=== PATIENT | female | born 1975 | race Asian ===

== ENCOUNTER 2020-11-16 03:24 | Outpatient (CLI) | payer MEDICAID, SELFPAY ==
[2020-11-16 12:04] LABS: Anion Gap 8.2 mmol/L (3-11); BUN 15 mg/dL (7-18); CO2 26.8 mmol/L (21.0-32.0); CREATININE 0.7 mg/dL (0.55-1.02); Calcium 8.6 mg/dL (8.5-10.1); Calculated LDL 104 mg/dL (<100); Chloride 105 mmol/L (98-107); Cholesterol 182 mg/dL (<200); Glucose 93 mg/dL (74-106); HDL Cholesterol 69 mg/dL (40-60); Potassium 4.5 mmol/L (3.5-5.1); Sodium 140 mmol/L (136-145); TSH (W/Ref FT4) 0.76 uIU/mL (0.36-3.74); Triglyceride 49 mg/dL (<150)
[2020-11-17 10:39] LABS: Hepatitis C Ab w Rflx HCV PCR Negative (Negative)
[2020-11-17 10:50] LABS: HIV-1/2 Ag & Ab Screen Negative (Negative)
== END 2020-11-16 03:25 | disposition home or self-care (01) ==
LOC: LBO 03:24
PROVIDERS: PCP Nurse Practitioner Family; Visit Provider Nurse Practitioner Family
DX: G47.00 Insomnia, unspecified (principal); R23.2 Flushing; R68.89 Other general symptoms and signs; Z13.220 Encounter for screening for lipoid disorders; Z11.4 Encounter for screening for human immunodeficiency virus [HIV]; Z11.59 Encounter for screening for other viral diseases; Z13.1 Encounter for screening for diabetes mellitus
CPT/HCPCS: 36415; 80048; 80061; 86803; 87389; 84443

== ENCOUNTER 2020-11-23 10:16 | Outpatient (REF) | payer MEDICAID, SELFPAY ==
--- NOTE | 2020-11-23 09:00 | PAPFT_PTH ---
PATIENT: Reg Garcia LOC: [facility] U#:[id number] AGE/SX: 45/F ROOM: RE11/23/[address]: Steph Rodriguez APRN : 1975 BED: DIS: 11/23/2020 SPEC #: [id number] RECD: 11/23/20 17:57 STATUS: AMBROCIO REPadmini #: [id number] AMBER: 11/23/20 09:[address]: Steph Rodriguez DEPT: [facility] Cytology RECD BY: Angelia Cardona Tissues: 1 - CX/ENDOCX FOR PAP SMEARS Procedures: PAP THIN PREP/UVM Screening HPV DNA PROBE Comments: [id number]
== END 2020-11-23 10:17 | disposition home or self-care (01) ==
LOC: LBN 10:16
PROVIDERS: PCP Nurse Practitioner Family; Visit Provider Nurse Practitioner Family
DX: Z12.4 Encounter for screening for malignant neoplasm of cervix (principal); Z11.51 Encounter for screening for human papillomavirus (HPV)
CPT/HCPCS: 88142; 87624

== ENCOUNTER 2021-05-21 15:50 | Outpatient (REF) | payer MEDICAID, SELFPAY ==
[2021-05-23 15:03] LABS: COVID-19 RT-PCR UVMMC Result Negative (Negative)
== END 2021-05-21 15:51 | disposition home or self-care (01) ==
LOC: LBN 15:50
PROVIDERS: PCP Nurse Practitioner Family; Visit Provider Nurse Practitioner Family
DX: Z20.822 Contact with and (suspected) exposure to COVID-19 (principal)
CPT/HCPCS: U0003

== ENCOUNTER 2022-08-18 11:13 | Day surgery (SDC) | payer MEDICAID, SELFPAY ==
--- NOTE | 2022-08-18 07:16 | W.PM.DSUDISC ---
Date of service: 08/18/22 Time of Service: 13:37 Discharge Plan Disposition Patient Disposition: Home Condition: Good Discharge Details Reason For Visit: Screening colonoscopy Attending Provider: Amish Tipton Primary Care Provider: Steph Rodriguez Home Meds and New Rx's Prescriptions: Continued trazodone 50 mg tablet 50 mg PO HS PRN (Reason: insomnia) Qty: 90 3RF Discontinued bisacodyl [Dulcolax (bisacodyl)] 5 mg tablet,delayed release (DR/EC) 5 mg PO ONCE Qty: 4 0RF Rx Instructions: Take according to provider's instructions for colonoscopy prep. polyethylene glycol 3350 17 gram/dose powder 17 g PO ONCE Qty: 238 0RF Rx Instructions: To be taken as directed by prescriber's office for colonoscopy prep. Discharge Instructions Additional Instructions: Ciera, I am sorry to tell you that I was not able to complete your colonoscopy today, because of difficulty advancing the scope beyond 1 area of your large intestine. As we talked about in the recovery unit, my recommendation is to follow-up with a barium enema. Alternatively, you could perform a Cologuard test as a screen for colon or rectal cancers. I have taken the liberty of placing the order for the barium enema. If you would like to discuss these options in more detail, please notify my office, we can arrange for a visit to go over any questions that you have. 1. If tolerated, consume a soft, low fiber diet for 1-2 days. 2. Do not drive, drink alcohol, operate machinery, make critical decisions, or do activities that require coordination or balance for 24 hours. 3. Because air was put into your colon during the procedure, expelling air from your rectum (passing gas or farting) is normal. 4. You may not have a bowel movement for 1-3 days because of the colonoscopy prep. This is normal. 5. Go directly to the emergency room if you notice any of the following: Develop chills (warm to touch), or if you have a thermometer and your temperature is above 101 Difficulty breathing or difficultly swallowing Persistent vomiting Severe abdominal pain, other than gas cramps Severe chest pain Black, tarry stools Any bleeding ? exceeding one tablespoon 6. Call your physician if the site where your intravenous was started becomes red, swollen, painful, and warm to touch. 7. Your physician has reviewed your pre-procedure medications. Please continue to take those medications as previously ordered. You will be given specific information/education regarding any changes to your medications before leaving. Activity:: Activity as Tolerated Diet:: As Tolerated Discharge Orders Discharge Orders: Discharge Order (Routine); Ordered 08/18/22 Ordered By: Amish Tipton Discharge Data Discharge Date/Time-TO BE ENTERED AT DEPARTURE: 08/18/22 14:35 DS: Diagnosis Discharge Diagnosis (1) Encounter for screening for malignant neoplasm of colon: Status: Acute Asessment and Plan: Will need follow-up with a barium enema, Cologuard, or reference to another endoscopist for a second opinion and trial of colonoscopy.
--- NOTE | 2022-08-18 07:17 | W.COLOREPORT ---
Date of service: 08/18/22 Time of Service: 13:32 Colonoscopy Report Date of procedure: 08/18/22 Pre-op diagnosis general: Screening colonoscopy Post-op diagnosis procedure note: other (Incomplete colonoscopy) Procedure: Incomplete colonoscopy Surgeon: Amish Tipton Anesthesia Type: General:No Airway Estimated blood loss (mL): 0 Pathology: none sent Complications: None Disposition: same day Indications: Ciera is a 46-year-old woman here for her first screening colonoscopy. Prep: Miralax/Dulcolax Procedure Start Time: 13:03 Procedure End Time: 13:22 Findings: A tortuous turn near the splenic flexure Procedure Description: After the induction of monitored anesthetic care, and with the patient in left lateral decubitus position, I began by performing an external anorectal exam.? Perineum and skin were normal, as was the anal verge.? There were some fibrosed external skin tags consistent with old hemorrhoids.? Next, I performed a digital rectal exam.? I did not appreciate any abnormal findings.? Next, I advanced the colonoscope through the rectum into the distal colon. Around 45 to 50 cm from the anal verge, I encountered a sharp turn in the colon. I attempted to navigate this, but I was unable to successfully pass the colonoscope beyond it. After several attempts with irrigation insufflation, suction retraction, multiple angle approaches, and repositioning the patient, I was still unable to pass the scope safely. There was some inflammation and irritation of the colonic mucosa because of the scope manipulation. Therefore, in an effort to maximize her safety, and reduce the chance of iatrogenic injury, I felt the safest thing to do is terminate the procedure at that point
[2022-08-18 11:52] VITALS: BP 135/90; PULSE 101; RESP 16; TEMP 36.3; O2SAT 100
[2022-08-18] MEDS: Lactated Ringers 1,000 ML 80 ML IV (12:10)
--- NOTE | 2022-08-18 12:19 | W.ANESPRE ---
General Info Date of Service Date Performed: 08/18/22 Height: 5 ft 1 in Weight: 51.6 kg Body Mass Index (BMI): 21.4 Surgical Procedure: Operation Date: 08/18/22 13:05 Proposed Procedure Side Surgeon lynn Tipton MD Meds Allergies and Home Medications Allergies Allergy/AdvReac Type Severity Reaction Status Date / Time No Known Drug Allergies Allergy Verified 11/24/21 08:29 Home Medication Medication Instructions Recorded trazodone 50 mg tablet 50 mg PO HS PRN insomnia #90 11/24/21 tab-caps bisacodyl 5 mg tablet,delayed 5 mg PO ONCE #4 tabs 07/21/22 release (Dulcolax (bisacodyl)) polyethylene glycol 3350 17 17 g PO ONCE #238 grams 07/21/22 gram/dose oral powder Current Visit Medications: Current Medications Generic Name Dose Route Start Last Admin Trade Name Freq PRN Reason Stop Dose Admin Hyoscyamine Sulfate 0.125 mg 08/18/22 07:18 Hyoscyamine 0.125 Mg Sl/Oral/Chew SL DIRECTED PRN Ringer's Solution 1,000 mls @ 80 mls/hr 08/18/22 06:00 08/18/22 12:10 IV 09/16/22 23:59 80 mls/hr INFUSION ESME Administration IV Miscellaneous Supplies 1 each 08/18/22 06:00 Iv Access IV 09/16/22 23:59 DIRECTED ESME Ondansetron HCl 4 mg 08/18/22 07:18 Ondansetron 4 Mg/2 Ml Vial IVP Q4H PRN PRN Nausea / Vomiting Sodium Chloride 0 ml 08/18/22 06:00 Normal Saline Flush 10 Ml Syr IV 09/16/22 23:59 PRN PRN Sodium Chloride 0 ml 08/18/22 06:00 Normal Saline 10 Ml Vial IJ 09/16/22 23:59 DIRECTED PRN Sterile Water 0 ml 08/18/22 06:00 Water,Injection,Sterile 10 Ml Vial IJ 09/16/22 23:59 DIRECTED PRN PFSH Active Problems Active Problems: Problem Status Onset Code Encounter for screening for malignant neoplasm of colon Z12.11 Insomnia G47.00 Surgical History Surgical History section (07/10/05) Tobacco Smoking/Tobacco Use Status: Never Passive smoking exposure: No Alcohol Alcohol Intake: current Alcohol intake frequency: 0-2 drinks per day Substance Use Substance use: Never Substance use type: does not use Vital Signs and Lab Results Vital Signs Most Recent Vital Signs in EMR: Most Recent Vital Signs Temp Pulse Resp BP Pulse Ox 36.3 C L 101 H 16 135/90 100 08/18/22 11:52 08/18/22 11:52 08/18/22 11:52 08/18/22 11:52 08/18/22 11:52 Lab Results Blood Type / Crossmatch: No Data to Display Complete Blood Count: No Data to Display Complete Metabolic Panel: No Data to Display Liver Function Panel: No Data to Display Coagulation Panel: No Data to Display Cardiac Panel: No Data to Display Arterial Blood Gas: No Data to Display Venous Blood Gas: No Data to Display Pancreas Panel: No Data to Display Thyroid Panel: No Data to Display Infectious Disease: No Data to Display Blood Cultures: No Data to Display Toxicology Panel: No Data to Display Panel: No Data to Display Anesthesia Assessment and Plan Anesthesia History Personal History: No History of Anesthesia Complications Family History: No Family History of Anesthesia Complications Exercise Tolerance Exercise Tolerance: Metabolic Equivalents>4 Pertinent Negatives Pertinent Negatives: No Symptoms of GERD, No Major Cardiovascular Symptoms or Complaints and No Major Pulmonary Symptoms or Complaints Cardiac & Pulmonary Exam Cardiac Exam: Normal S1/S2 Heart Sounds Pulmonary Exam: Clear Bilateral Breath Sounds Implantable Cardiac Device Does patient have a Pacemaker or an ICD?: No Airway Exam Known Difficult Airway: No Mallampati Class: 1 Mouth Opening: Normal (> 3cm) Thyromental Distance: Greater than 3 cm Neck Range of Motion: Full ROM Neck Circumference: Normal Teeth Condition: Normal Dentition ASA Classification ASA Score: ASA 2 Emergency Case?: No NPO Status NPO Status: NPO Clears >2 hours, Solids >8 hours Status Status: Negative HCG Anesthesia Plan Resuscitation Status: Full Code Anesthesia Technique: General Anesthesia Airway Planned: Natural Airway Monitors Used: Standard Monitors
[2022-08-18 12:21] VITALS: BMI 21.4
[2022-08-18 13:34] VITALS: PULSE 71; RESP 16; TEMP 36.2; O2SAT 100
[2022-08-18 14:00] VITALS: BP 113/69; PULSE 68; RESP 16; TEMP 36.4; O2SAT 100
--- NOTE | 2022-08-18 14:25 | W.ANESPOSTOP ---
Postoperative Evaluation Date, Time and Location Date Performed: 08/18/22 Time Performed: 13:40 Patient Location: Day Surgery Unit Vital Signs Most Recent Imported Vital Signs: Most Recent Vital Signs Temp Pulse Resp BP Pulse Ox 36.4 C L 68 16 113/69 100 08/18/22 14:00 08/18/22 14:00 08/18/22 14:00 08/18/22 14:00 08/18/22 14:00 Pain Score Most Recent Pain Score: Most Recent Pain Score Pain Level 0 08/18/22 14:00 Assessment Mental Status: Awake (Alert & Oriented to Patient Baseline) Airway and Respiratory Function: Patent airway with normal (patient baseline) respiratory exam Cardiovascular Function: Hemodynamically Stable Hydration Status: Adequately Hydrated Nausea & Vomiting: No Nausea or Vomiting Pain: Pt. Denies Any Pain Peripheral Nerve Block: Patient did not receive a nerve block
== END 2022-08-18 14:35 | disposition home or self-care (01) ==
LOC: SUR 11:15
PROVIDERS: PCP Nurse Practitioner Family; Visit Provider Surgery
PROC: 0DJD8ZZ Inspection of Lower Intestinal Tract, Via Natural or Artificial Opening Endoscopic (ICD-10-PCS; CPT 45378; principal; 2022-08-18 13:00)
DX: Z12.11 Encounter for screening for malignant neoplasm of colon (principal); K63.89 Other specified diseases of intestine
CPT/HCPCS: 45330; 81025

== ENCOUNTER 2023-12-11 15:26 | Emergency (ER) | payer MEDICAID, SELFPAY ==
[2023-12-11 15:28] VITALS: BP 126/70; PULSE 73; RESP 20; TEMP 37.1; O2SAT 99
[2023-12-11 15:38] VITALS: BP 126/70; PULSE 73; RESP 20; TEMP 37.1; O2SAT 99
[2023-12-11] MEDS: Ketorolac 15 MG/ML VIAL IM (16:30)
[2023-12-11] MEDS: Loratidine 10 MG TAB PO (16:30)
[2023-12-11] MEDS: Prochlorperazine 10 MG/2 ML VIAL 5 MG IM (16:30)
--- NOTE | 2023-12-11 16:39 | DI.RAD_ITS ---
Exam(s) XR CHEST 2V PA LATERAL EXAM: XR CHEST 2V PA LATERAL CLINICAL HISTORY: cough and shortness of breath. TECHNIQUE: 2D digital imaging was performed. COMPARISON: No exams were available for comparison FINDINGS: 2 views: Heart size is normal. The mediastinum is not widened. Lungs are clear. No infiltrates nor pleural effusions. IMPRESSION: No acute pulmonary findings. DATA REPOSITORY: RADIATION DOSE DELIVERED:
--- NOTE | 2023-12-11 17:06 | ED.GENADUL_ITS ---
Discharge Plan Disposition Patient Disposition: Home Condition: Stable Discharge Details Clinical Impression: Headache, Acute sore throat Primary Care Provider: Steph Rodriguez ED Provider: Angelia Mujica Home Meds and New Rx's Prescriptions: New loratadine [Claritin] 10 mg tablet 10 mg PO DAILY PRNQty: 14 0RF prochlorperazine maleate [Compazine] 10 mg tablet 10 mg PO Q8H PRNQty: 10 0RF Continued trazodone 50 mg tablet 50 mg PO HS PRN (Reason: insomnia) Qty: 90 3RF permethrin 5 % cream 1 applic topical Q14D Qty: 60 0RF Rx Instructions: Apply to all areas of the body from the neck to soles of feet (30 g for average adult); leave on for 8 to 14 hours before removing by washing (shower or bath). For older adults, also apply on the hairline, neck, scalp, confucianism, and forehead. One application is generally curative; may repeat if living mites/rash are observed 14 days after first treatment. Discharge Instructions Instructions: General Headache (ED) Additional Instructions: Take ibuprofen 600 mg every 8 hours as needed for pain You may take Tylenol 650 mg every 6 hours as needed for additional discomfort Take Claritin daily for the next week or so and see if your symptoms are improving this is an allergy medication I also recommend taking the Compazine as needed for headache Please be reevaluated in 1 week should you have persistent symptoms, should your headache worsen or you develop any new symptoms please return to the emergency department for reassessment I will call if the results of your flu, COVID, RSV are positive if they are negative I will not call this evening Referrals: Steph Rodriguez NP [Primary Care Provider] - 2 days Discharge Data Discharge Date/Time-TO BE ENTERED AT DEPARTURE: 12/11/23 17:15 HPI General Date/Time Provider Initiated Documentation: 12/11/23 15:33 . HPI Narrative: This 48-year-old female presents with headache and sore throat for the past week. States symptoms are intermittent. Denies any known sick contacts. States otherwise healthy. Denies any fever or chills. Denies any neck pain. Denies history of regular headaches in the past. Denies any tick bites. Denies any rashes or lesions. Denies globus sensation. Related Data Home Medications Medication Instructions Recorded Confirmed permethrin 5 % topical cream 1 applic topical Q14D scabies 2 11/16/22 11/30/22 doses #60 grams trazodone 50 mg tablet 50 mg PO HS PRN insomnia #90 11/30/22 11/30/22 tab-caps loratadine 10 mg tablet (Claritin) 10 mg PO DAILY PRN #14 tabs 12/11/23 prochlorperazine maleate 10 mg 10 mg PO Q8H PRN #10 tabs 12/11/23 tablet (Compazine) Previous Rx's Medication Instructions Recorded permethrin 5 % topical cream 1 applic topical Q14D scabies 2 11/16/22 doses #60 grams trazodone 50 mg tablet 50 mg PO HS PRN insomnia #90 11/30/22 tab-caps loratadine 10 mg tablet (Claritin) 10 mg PO DAILY PRN #14 tabs 12/11/23 prochlorperazine maleate 10 mg 10 mg PO Q8H PRN #10 tabs 12/11/23 tablet (Compazine) Allergies Allergy/AdvReac Type Severity Reaction Status Date / Time No Known Allergies Allergy Unverified 12/11/23 15:33 General Stated Complaint: Headache PAUL: 3 Exam Narrative Exam Narrative: Alert and oriented 48-year-old female, uvula midline, oropharynx patent, no erythema, maintaining secretions, no trismus, pupils equal round reactive to light and accommodation lungs clear to auscultation bilaterally, cardiac rate rhythm regular, no abdominal tenderness, no meningismus, nonfocal neurological exam, no rashes or lesions, no submandibular lymphadenopathy Course Vital Signs Vital signs: Vital Signs Temperature 37.1 C 12/11/23 15:28 Pulse 73 12/11/23 15:28 Respiratory Rate 20 12/11/23 15:28 Blood Pressure 126/70 12/11/23 15:28 Pulse Oximetry 99 12/11/23 15:28 Temperature 37.1 C 12/11/23 15:38 Temperature Source Temporal Artery Scan 12/11/23 15:38 Pulse 73 12/11/23 15:38 Respiratory Rate 20 12/11/23 15:38 Respiratory Effort Normal, Non-Labored 12/11/23 15:33 Blood Pressure 126/70 12/11/23 15:38 Blood Pressure Position Sitting 12/11/23 15:38 Pulse Oximetry 99 12/11/23 15:38 Oxygen Delivery Method Room Air 12/11/23 15:38 Oxygen Flow Rate 0 12/11/23 15:38 Medical Decision Making 48-year-old female presenting with headache, no acute distress, given IM Toradol and IM Compazine, headache has resolved, no acute distress, no meningismus, negative Fluvid, negative chest x-ray per radiology interpretation and my review. Vitals are stable, oxygenation 99%, afebrile and complete resolution of symptoms after supportive therapy and Compazine. At this time I think patient stable for discharge home, I suspect she probably has a viral etiology of symptoms versus allergies. Should headache return or worsen she is encouraged to return for reassessment. Recommendation for 48-hour follow-up with primary care physician discharged home in stable condition with stable vitals. Of note, patient's son was the double spindle shaper operator for this patient, I confirmed with patient that she would prefer her son over language line double spindle shaper operator and she refused language line interpretation during my encounter. Patient is fully alert, oriented, and of decisional capacity Quality:SDOH Health Related Social Needs: No Data to Display PFSH All Active Problems (Updated 12/11/23 @ 17:07 by BLANCA Rankin) Acute sore throat (Acute) Headache (Acute) Insomnia (Acute) Surgical History (Updated 11/30/22 @ 08:47 by Steph Rodriguez NP) Status post section (~07/10/05) Family History Mother Essential hypertension Social History (Updated 11/30/22 @ 08:32 by Nita Houston RN) Smoking/Tobacco Use Status: Never Smoking risk assessment performed?: Yes Alcohol Intake: current Alcohol Intake frequency: 0-2 drinks per day Counseling given: No Drug use: Never Substance use type: does not use Adopted: No Caregiver/Support person: No Foster care: No Household members: family Housing: house Number of Children: 2 Communication Needs: Language Barriers Education Level: middle school Do you need help understanding health information?: Never current occupation: works in a restaurant Pets and animals: No Sexually active: No Do you think of yourself as: straight/heterosexual Current gender identity: female What is your relationship status?: How often do you talk on the phone with friends or family?: three or more times per week How often do you get together with friends or relatives?: decline to answer How often do you attend mandaeism or spiritism services?: decline to answer Do you belong to any clubs or organized social groups?: no Panel score (0-1 are the most socially isolated patients): 2 What type of physical activity do you participate in: bicycling Duration: < 15 minutes/day Frequency: daily Special padma needs: No Seatbelt use: always Helmet use: No Drive intox or ride w/intox driver education instructor: No Do you feel safe at home: Yes Do you feel safe in your relationship?: Yes Victim of physical abuse: No Victim of emotional abuse: No Victim of sexual abuse: No Would you like helpful sources: No
[2023-12-11 17:07] LABS: COVID-19 PCR Negative (Negative); Influenza A PCR Negative (Negative); Influenza B PCR Negative (Negative); RSV PCR Negative (Negative)
[2023-12-11 17:08] LABS: Source Nasopharynx
== END 2023-12-11 17:15 | disposition home or self-care (01) ==
LOC: ER 17:52
PROVIDERS: Emergency Provider Physician Assistant; PCP Nurse Practitioner Family
DX: R51.9 Headache, unspecified (principal); J02.9 Acute pharyngitis, unspecified
CPT/HCPCS: 36415; 87637; 96372; 99284; 71046; J0780; J1885

== ENCOUNTER 2024-01-01 03:03 | Outpatient (CLI) | payer MEDICAID, SELFPAY ==
[2024-01-01 09:30] LABS: Absolute Basophil Count 0.03 10^3/uL (0.0-0.2); Absolute Eosinophil Count 0.08 10^3/uL (0.0-0.7); Absolute Lymphocyte Count 1.51 10^3/uL (1.2-3.4); Absolute Monocyte Count 0.34 10^3/uL (0.1-0.8); Absolute Neutrophil Count 2.76 10^3/uL (1.2-6.7); Basophils % 0.6 %; Eosinophils % 1.7 %; HCT 32.3 % (36.0-46.0); HGB 9.7 g/dL (11.2-15.7); MCH 17.2 pg (27.0-33.0); MCV 57 fL (80-95); Monocytes % 7.2 %; Neutrophils % 58.5 %; RBC 5.63 10^6/uL (3.93-5.22); RDW 20.7 % (11.7-14.6); RDW-SD 38.1 fL; WBC 4.72 10^3/uL (4.4-10.8)
[2024-01-01 09:46] LABS: ALT 20 U/L (14-59); AST 20 U/L (15-37); Albumin 3.7 g/dL (3.4-5.0); Alkaline Phosphatase 44 U/L (46-116); Anion Gap 8.1 mmol/L (3-11); BUN 10 mg/dL (7-18); Bilirubin, Total 0.25 mg/dL (0.2-1.0); CO2 27.9 mmol/L (21.0-32.0); CREATININE 0.7 mg/dL (0.55-1.02); Calcium 8.7 mg/dL (8.5-10.1); Calculated LDL 108 mg/dL (<100); Chloride 106 mmol/L (98-107); Cholesterol 183 mg/dL (<200); Estimated GFR 105.95 (mL/min/1.73m2); Glucose 102 mg/dL (74-106); HDL Cholesterol 69 mg/dL (40-60); Potassium 4.2 mmol/L (3.5-5.1); Sodium 142 mmol/L (136-145); Total Protein 7.8 g/dL (6.4-8.2); Triglyceride 31 mg/dL (<150)
[2024-01-01 09:48] LABS: Platelet Count 313 10^3/uL (130-400)
[2024-01-01 09:49] LABS: Anisocytosis 2+; Diff Comment RBC Morph Reviewed; Hypochromasia 3+; Microcytosis 2+
== END 2024-01-01 03:04 | disposition home or self-care (01) ==
LOC: LBO 03:04
PROVIDERS: PCP Nurse Practitioner Family; Referring Provider Nurse Practitioner; Visit Provider Nurse Practitioner
DX: Z13.220 Encounter for screening for lipoid disorders (principal); Z91.09 Other allergy status, other than to drugs and biological substances; G47.00 Insomnia, unspecified
CPT/HCPCS: 36415; 80053; 80061; 85025

== ENCOUNTER 2024-03-04 03:08 | Outpatient (CLI) | payer MEDICAID, SELFPAY ==
[2024-03-04 11:43] LABS: Abs Immature Grans 0.01 10^3/uL (0.0-0.06); Absolute Basophil Count 0.03 10^3/uL (0.0-0.2); Absolute Eosinophil Count 0.03 10^3/uL (0.0-0.7); Absolute Lymphocyte Count 1.74 10^3/uL (1.2-3.4); Absolute Monocyte Count 0.33 10^3/uL (0.1-0.8); Absolute Neutrophil Count 2.11 10^3/uL (1.2-6.7); Basophils % 0.7 %; Eosinophils % 0.7 %; HCT 30.8 % (36.0-46.0); Immature Grans % 0.2 %; Lymphocytes % 40.9 %; MCH 16.7 pg (27.0-33.0); MCHC 29.2 % (32.0-36.0); MCV 57 fL (80-95); Monocytes % 7.8 %; Neutrophils % 49.7 %; Platelet Count 338 10^3/uL (130-400); RDW 19.9 % (11.7-14.6); RDW-SD 35.9 fL; WBC 4.25 10^3/uL (4.4-10.8)
[2024-03-04 11:58] LABS: Diff Comment RBC Morph Reviewed; Microcytosis 2+
[2024-03-04 11:59] LABS: Poikilocytes 2+
[2024-03-04 12:40] LABS: Ferritin 8 ng/mL (8-252); TSH (W/Ref FT4) 0.92 uIU/mL (0.36-3.74); Vitamin B12 393 pg/mL (193-986)
[2024-03-04 12:52] LABS: Total Iron Binding Capacity 358 ug/dL (250-450)
== END 2024-03-04 03:09 | disposition home or self-care (01) ==
LOC: LBO 03:08
PROVIDERS: PCP Nurse Practitioner Family; Referring Provider Nurse Practitioner; Visit Provider Nurse Practitioner
DX: D64.9 Anemia, unspecified (principal)
CPT/HCPCS: 36415; 82607; 82728; 83550; 84443; 85025

== ENCOUNTER 2024-03-08 09:34 | Outpatient (REF) | payer MEDICAID, SELFPAY | END 2024-03-08 09:35 | disposition home or self-care (01) | LOC: LBN 09:34 | PROVIDERS: PCP Nurse Practitioner Family; Visit Provider Nurse Practitioner Family | DX: R30.9 Painful micturition, unspecified (principal); R35.0 Frequency of micturition | CPT/HCPCS: 87480; 87510; 87660 ==

== ENCOUNTER 2024-05-13 03:10 | Outpatient (CLI) | payer MEDICAID, SELFPAY ==
[2024-05-13 09:53] LABS: Abs Immature Grans 0.02 10^3/uL (0.0-0.06); Absolute Basophil Count 0.03 10^3/uL (0.0-0.2); Absolute Eosinophil Count 0.06 10^3/uL (0.0-0.7); Absolute Monocyte Count 0.35 10^3/uL (0.1-0.8); Absolute Neutrophil Count 2.43 10^3/uL (1.2-6.7); Basophils % 0.7 %; Eosinophils % 1.4 %; HCT 32.3 % (36.0-46.0); HGB 9.4 g/dL (11.2-15.7); Immature Grans % 0.5 %; MCHC 29.1 % (32.0-36.0); MCV 55 fL (80-95); Monocytes % 8.4 %; Platelet Count 328 10^3/uL (130-400); RBC 5.88 10^6/uL (3.93-5.22); RDW 21.5 % (11.7-14.6); RDW-SD 37.5 fL; WBC 4.19 10^3/uL (4.4-10.8)
[2024-05-13 10:19] LABS: Anisocytosis 1+; Diff Comment RBC Morph Reviewed; Hypochromasia 1+
[2024-05-13 10:20] LABS: Target Cells 2+
[2024-05-13 10:21] LABS: Poikilocytes 2+
[2024-05-13 10:47] LABS: Iron 24 ug/dL (50-170)
[2024-05-13 10:53] LABS: LDH 154 U/L (81-234)
[2024-05-13 11:21] LABS: Vitamin B12 483 pg/mL (193-986)
== END 2024-05-13 03:11 | disposition home or self-care (01) ==
LOC: LBO 03:10
PROVIDERS: PCP Nurse Practitioner Family; Referring Provider Family Medicine; Visit Provider Family Medicine
DX: D64.9 Anemia, unspecified (principal)
CPT/HCPCS: 36415; 82607; 83540; 83615; 85025

== ENCOUNTER 2025-04-28 03:52 | Outpatient (CLI) | payer MEDICAID, SELFPAY ==
[2025-04-28 08:59] LABS: HCT 33.0 % (36.0-46.0); HGB 10.2 g/dL (11.2-15.7); MCH 19.0 pg (27.0-33.0); MCHC 30.9 % (32.0-36.0); MCV 62 fL (80-95); Platelet Count 286 10^3/uL (130-400); RBC 5.37 10^6/uL (3.93-5.22); RDW 18.2 % (11.7-14.6); RDW-SD 38.5 fL; WBC 5.04 10^3/uL (4.4-10.8)
[2025-04-28 09:31] LABS: Iron 39 ug/dL (50-170)
== END 2025-04-28 03:53 | disposition home or self-care (01) ==
PROVIDERS: PCP Family Medicine; Referring Provider Family Medicine; Visit Provider Family Medicine
DX: D50.9 Iron deficiency anemia, unspecified (principal)
CPT/HCPCS: 36415; 85027; 83540

== ENCOUNTER 2025-06-02 03:23 | Outpatient (RCR) | payer MEDICAID, SELFPAY ==
[2025-05-26] MEDS: IRON SUCROSE COMPLEX 300 MG in Normal Saline 250 ML 176.667 MG IVPB (11:15)
[2025-05-26] MEDS: Normal Saline Flush 10 ML SYR IVP (11:15)
[2025-06-02] MEDS: IRON SUCROSE COMPLEX 300 MG in Normal Saline 250 ML 176.667 MG IVPB (11:15)
[2025-06-02] MEDS: Normal Saline Flush 10 ML SYR IVP (11:16)
== END 2025-06-08 23:59 | disposition home or self-care (01) ==
LOC: INF 03:23
PROVIDERS: PCP Family Medicine; Visit Provider Family Medicine
DX: D50.0 Iron deficiency anemia secondary to blood loss (chronic) (principal)
CPT/HCPCS: 96365; 96366; J1756

== ENCOUNTER 2025-06-09 03:14 | Outpatient (RCR) | payer MEDICAID, SELFPAY ==
[2025-06-09] MEDS: IRON SUCROSE COMPLEX 300 MG in Normal Saline 250 ML 176.667 MG IVPB (11:10)
[2025-06-09] MEDS: Normal Saline Flush 10 ML SYR IVP (11:10)
== END 2025-07-09 23:59 | disposition home or self-care (01) ==
LOC: INF 03:14
PROVIDERS: PCP Family Medicine; Visit Provider Family Medicine
DX: D50.0 Iron deficiency anemia secondary to blood loss (chronic) (principal)
CPT/HCPCS: 96365; 96366; J1756